=== PATIENT | male | born 1980 | race Caucasian/White ===

== ENCOUNTER → 2017-12-08 | Outpatient (CLI) | payer OTHER ==
[~2017-12-08] MED LIST: ACID REDUCER 1150 MG PO; IBUPROFEN200 M1 PO; IMITREX50 MG PO; MEN'S MULTI-VI1 EACH PO; NORCO 5/3251 TABLET PO; OSTEO BI-FLEX1 EAC1 PO; PROCTOSOL-HC28.35 GM PR; VERAPAMIL HCL180 MG PO; VERAPAMIL HCL240 MG PO; ZESTORETIC 20-1 EAC2 PO
== END | disposition home or self-care (01) ==
LOC: CDC 15:22
DX: Z01.810 Encounter for preprocedural cardiovascular examination (principal); S53.431D Radial collateral ligament sprain of right elbow, subsequent encounter; S53.12 Posterior subluxation and dislocation of ulnohumeral joint; S52.124D Nondisplaced fracture of head of right radius, subsequent encounter for closed fracture with routine healing; M25.521 Pain in right elbow
CPT/HCPCS: 93000

== ENCOUNTER 2017-12-09 10:59 | Day surgery (SDC) | payer OTHER ==
[~2017-12-09] VITALS: Ht 182.9 cm; Wt 131.5 kg
[2017-12-09 11:49] VITALS: BP 131/80
[2017-12-09 17:53] VITALS: BP 135/79
[2017-12-09 18:40] VITALS: BP 131/85
== END 2017-12-09 18:43 | disposition home or self-care (01) ==
LOC: SDC 10:59
DX: S53.401A Unspecified sprain of right elbow, initial encounter (principal); S53.21XA Traumatic rupture of right radial collateral ligament, initial encounter; M24.021 Loose body in right elbow; G56.21 Lesion of ulnar nerve, right upper limb; I10 Essential (primary) hypertension; G47.30 Sleep apnea, unspecified; W01.0XXA Fall on same level from slipping, tripping and stumbling without subsequent striking against object, initial encounter; Y93.H3 Activity, building and construction; Y92.007 Garden or yard of unspecified non-institutional (private) residence as the place of occurrence of the external cause
CPT/HCPCS: C1713; J0690; J1170; J2250; J2405; J2765; J2795; J3010; S0020